=== PATIENT | female | born 1960 ===

== ENCOUNTER 2025-09-25 06:55 | Day surgery (SDC) | payer MEDICARE ==
[2025-09-25] MEDS ORDERED: Lactated Ringers 1,000 ML IV ONE (07:11)
[2025-09-25] MEDS: TETRACAINE 0.5% STERI-UNIT SOL OP ONE ×2 (07:21→07:22)
[2025-09-25] MEDS: Lactated Ringers 1,000 ML IV SCH (07:21)
[2025-09-25] MEDS: Ak-Dilate OPHTHALMIC*** 0.71 ML, Cyclogyl 1% OPHTH SOL 0.71 ML, GATIFLOXACIN 0.5% OPHTH... OP SCH (07:22)
[2025-09-25] MEDS ORDERED: propofoL IV ONE (10:24)
[2025-09-25] MEDS ORDERED: SUBLIMAZE 100 MCG/2 ML ONE (10:27)
[2025-09-25] MEDS ORDERED: ROBINUL ONE (10:37)
[2025-09-25 10:59] VITALS: RESP 16
[2025-09-25 11:11] VITALS: O2SAT 100
[2025-09-25 11:13] VITALS: BP 120/81; PULSE 80; TEMP 97.9
[2025-09-25] MEDS: PROVENTIL 2.5 MG/3 ML NEB IH ONE (11:15)
[2025-09-25] MEDS: DUONEB 0.5-3 MG/3 ml Neb IH ONE (11:17)
[2025-09-25] MEDS ORDERED: TRIAMCINOLONE 15 MG/ML INJ INTRAOP NR (13:00)
[2025-09-25] MEDS ORDERED: DEXTENZA OP NR (13:00)
[2025-09-25] MEDS ORDERED: VIGAMOX/BSS 0.15% SYR IO NR (13:00)
[2025-09-25] MEDS ORDERED: BETADINE 5% OPHTHALMIC 30 ML OP NR (13:00)
[2025-09-25] MEDS ORDERED: DEXMEDETOMIDINE 80 MCG/20ML-NS IV NR (13:00)
[2025-09-25] MEDS ORDERED: OMIDRIA 1-0.3% VIAL IO NR (13:00)
[2025-09-25] MEDS ORDERED: Zofran 4 MG/2 ML VIAL IV PRN (13:00)
== END 2025-09-25 11:17 | disposition home or self-care (01) ==
LOC: SDC 06:55
PROVIDERS: ATTEND Ophthalmology
DX: H25.812 Combined forms of age-related cataract, left eye (principal)